=== PATIENT | female | born 1930 ===

== ENCOUNTER → 2017-05-24 | Outpatient (RCR) | payer OTHER ==
[~2017-05-24] MED LIST: ACETAMINOPHEN325 M1 ORAL; AMBIEN5 MG ORAL; ASPIRIN81 MG ORAL; HYDROCHLOROTHIA25 MG ORAL; HYDROCODON-ACE1 EACH ORAL; NORVASC10 MG ORAL; PLAVIX75 MG ORAL; PROTONIX40 M2 GT; SYNTHROID25 MCG ORAL; TENORMIN25 MG ORAL; TOPROL XL50 MG ORAL; UNIRETIC PO; VYTORIN 10-201 EACH ORAL; ZITHROMAX250 MG ORAL
== END | disposition home or self-care (01) ==
LOC: PTY 13:00
PROVIDERS: ATTEND Internal Medicine
DX: M25.511 Pain in right shoulder (principal); G89.29 Other chronic pain

== ENCOUNTER 2017-06-05 13:00 | Outpatient (RCR) | payer OTHER | END 2017-06-24 | disposition home or self-care (01) | LOC: PTY 13:00 | PROVIDERS: ATTEND Internal Medicine | DX: M25.511 Pain in right shoulder (principal); G89.29 Other chronic pain | CPT/HCPCS: 97110; 97140; G0283 ==